=== PATIENT | female | born 1990 | race Hispanic/Latino ===

== ENCOUNTER → 2024-10-11 | Outpatient (CLI) | payer OTHER ==
[2024-10-11 11:29] LABS: ALT/SGPT 23.0 U/L (7.0-40); AST/SGOT 22.0 U/L (<34)
== END ==
LOC: EDBD 09:54 → M LAB 09:54
PROVIDERS: ATTEND Family Medicine
DX: B15.9 Hepatitis A without hepatic coma (principal)